=== PATIENT | male | born 1965 | race African-American/Black ===

== ENCOUNTER → 2017-08-15 | Outpatient (CLI) | payer OTHER ==
--- NOTE | 2017-08-15 16:50 | RADIOLOGY REPORT (SQ) ---
EXAM DESCRIPTION: U/S THYROID/SFT TISS HD NECK COMPLETED DATE/TIME: 08/15/2017 2:40 pm REASON FOR STUDY: NECK SWELLING R22.1 LOCALIZED SWELLING, MASS AND LUMP, NECK COMPARISON: None. TECHNIQUE: Dynamic and static blank-scale images acquired of the thyroid gland. Selected additional c olor/power Doppler images recorded. All images stored to PACS. LIMITATIONS: None. FINDINGS: The thyroid gland heterogeneous in echotexture with increased color flow. Right lobe thyroid 4.3 x 2.7 x 1.9 cm in size. In the posterior aspect of the right midpole gland, a 1.8 x 1 cm nodule is present with internal color flow. In the right lower pole thyroid gland, multi ple complex cysts are present 4 mm, 6 mm, and 7 mm in diameter. Left lobe thyroid measures 4.5 x 2.6 x 1.9 cm in size. There is a 10 mm nodule in the extreme inferi or tip of the left lower pole thyroid. Isthmus mildly thickened, 6 mm in thickness. IMPRESSION: Heterogeneous thyroid gland with diffuse increased color flow. Multiple nodules bilater ally as above. TECHNICAL DOCUMENTATION: JOB ID: [id number] [employer]- All Rights Reserved
== END ==
LOC: RAD 13:35
PROVIDERS: ATTEND Family Medicine
DX: R22.1 Localized swelling, mass and lump, neck (principal)
CPT/HCPCS: 76536